=== PATIENT | male | born 1975 ===

== ENCOUNTER → 2024-05-31 | Outpatient (CLI) | payer OTHER ==
[~2024-05-31] MED LIST: AMOCLA875 PO; CRUTCH USE; HYDMOR2 PO; METO10 PO; PENVK500; RXHYDMOR2 PO
[2024-06-03 16:05] LABS: HSV 1 SUBTYPE BY PCR Not Detected; HSV 2 SUBTYPE BY PCR Detected; HSV SUBTYPE SOURCE LOWER BACK
== END ==
LOC: LAB 15:49 → LAB SHORT 15:49
PROVIDERS: Physician Assistant Medical
DX: B02.9 Zoster without complications (principal); C44.712 Basal cell carcinoma of skin of right lower limb, including hip
CPT/HCPCS: 87070; 87205; 87529